=== PATIENT | male | born 1960 | race African-American/Black ===

== ENCOUNTER 2017-10-16 13:12 | Emergency (ER) | payer MEDICARE, OTHER ==
[~2017-10-16] VITALS: Ht 180.3 cm; Wt 113.0 kg
[2017-10-16 13:14] VITALS: BP 152/97
[2017-10-16] MEDS ORDERED: BACITRACIN ZINC OINT UDPKT TOP ONE (17:15)
[2017-10-16] MEDS ORDERED: IBUPROFEN 600MG TABLET PO STA (17:21)
== END 2017-10-16 18:22 | disposition home or self-care (01) ==
LOC: ER 13:12
DX: S00.212A Abrasion of left eyelid and periocular area, initial encounter (principal); S00.83XA Contusion of other part of head, initial encounter; S50.311A Abrasion of right elbow, initial encounter; M25.532 Pain in left wrist; F20.9 Schizophrenia, unspecified; F43.10 Post-traumatic stress disorder, unspecified; F17.210 Nicotine dependence, cigarettes, uncomplicated; Z98.890 Other specified postprocedural states; Y04.0XXA Assault by unarmed brawl or fight, initial encounter; Y93.89 Activity, other specified; Y92.488 Other paved roadways as the place of occurrence of the external cause
CPT/HCPCS: 29125; 70450; 72125; 73110; 99284